=== PATIENT | female | born 1955 | race Caucasian/White ===

== ENCOUNTER 2018-02-06 09:55 | Emergency (ER) | payer BC ==
[~2018-02-06] VITALS: Ht 149.9 cm; Wt 53.6 kg
[2018-02-06 10:05] VITALS: Ht 149.9 cm; Wt 53.6 kg
[2018-02-06 10:52] LABS: BASOPHILS 0.5 % (0-2); EOSINOPHILS 2.6 % (0-7); HEMATOCRIT 43.2 % (36.0-48.0); HEMOGLOBIN 14.6 g/dL (12-16); IMMATURE GRANULOCYTES 0.3 % (0-5); LYMPHOCYTES 12.8 % (15-50); MCH 32.2 pg (26.0-34.0); MCHC 33.8 g/dL (31.0-37.0); MCV 95.2 fL (80.0-100.0); MEAN PLATELET VOLUME 9.5 fL (7.4-10.4); MONOCYTES 6.3 % (2-11); NEUTROPHILS 77.5 % (40-80); PLATELET COUNT 300 10x3/uL (130-400); RBC 4.54 10x6/uL (4.00-5.40); RDW 13.1 % (11.5-14.5); WBC 10.2 10x3/uL (4.8-10.8)
[2018-02-06 11:09] LABS: ALBUMIN 3.4 g/dL (3.4-5.0); ALKALINE PHOSPHATASE 119 U/L (46-116); ALT (SGPT) 15 U/L (10-68); BILIRUBIN - TOTAL 0.71 mg/dL (0.2-1.3); CALC OSMOLALITY 277 mosm/kg (275-300); CALCIUM 9.3 mg/dL (8.5-10.1); CARBON DIOXIDE 24.5 mmol/L (21.0-32.0); CHLORIDE - SERUM 102 mmol/L (98-107); CREATININE - SERUM 0.9 mg/dL (0.6-1.3); GLUCOSE 115 mg/dL (74-106); POTASSIUM - SERUM 3.9 mmol/L (3.5-5.1); PROTEIN - SERUM 7.7 g/dL (6.4-8.2); SODIUM 139 mmol/L (136-145); UREA NITROGEN 10 mg/dL (7-18); eGFR NON AFRICAN AMERICAN 67 mL/min (90-120)
[2018-02-06 11:18] LABS: APTT 36.6 SECONDS (22.8-39.4); INR 0.96 (0.85-1.17); PROTIME 12.3 SECONDS (11.6-15.0)
[2018-02-06 11:21] LABS: CKMB 0.8 U/L (0.0-3.6); CREATINE KINASE 55 UL (21-215); MAGNESIUM - SERUM 2.3 mg/dL (1.8-2.4); THYROID STIMULATING HORMONE 1.77 uIU/mL (0.36-3.74)
[2018-02-06 11:23] LABS: TROPONIN-I < 0.017 ng/mL (0.000-0.060)
[2018-02-06 18:25] VITALS: BP 158/77
== END 2018-02-06 18:27 | disposition short-term general hospital (02) ==
LOC: D.ER 09:55
PROVIDERS: Family Medicine
DX: C79.31 Secondary malignant neoplasm of brain (principal); R91.8 Other nonspecific abnormal finding of lung field; R29.810 Facial weakness; F17.200 Nicotine dependence, unspecified, uncomplicated